=== PATIENT | male | born 1935 | race Caucasian/White ===

== ENCOUNTER 2019-11-19 14:22 | Outpatient (CLI) | payer MEDICARE ==
--- NOTE | 2019-11-19 15:09 | ULT ---
EXAM: Right lower extremity venous Doppler HISTORY: Right lower extremity edema. FINDINGS: Grayscale, color-flow, Doppler evaluation, spectral analysis of the right lower extremity venous stru ctures is performed with 2-D imaging. The right common femoral, superficial femoral, popliteal, posterior tibial, proximal greater saphenous and profunda femoral veins are imaged. There is normal luminal compressibility, flow, and augmentation in the visualized deep venous structu res of the right lower extremity. Right common femoral vein is difficult to adequately visualize on grayscale imaging due to patient positioning and current clinical condition, but there is normal flow within this vein. Nonspecific mildly prominent right inguinal lymph nodes are seen with largest lymph node measuring 9 mm in short axis dimension. Fatty jennifer are present within these lymph nodes. Mild subcutaneous edema is seen in the distal right lower extremity. There is a mildly prominent tubu lar structure with flow seen in the superficial soft tissues right lower extremity likely related to mildly prominent varicosity. IMPRESSION: 1. No evidence of a deep vein thrombosis in the visualized deep venous structures right lower extremi ty. 2. Mild subcutaneous edema distal right lower extremity.
== END 2019-11-19 14:23 | disposition home or self-care (01) ==
LOC: BICULT 14:22
PROVIDERS: ATTEND Family Medicine
DX: R60.0 Localized edema (principal); M79.89 Other specified soft tissue disorders

== ENCOUNTER 2022-02-28 23:44 | Inpatient (IN) | payer MEDICARE ==
[2022-03-01 00:40] VITALS: BMI 23.1
[2022-03-01] MEDS ORDERED: Acetaminophen 325 MG TAB PO PRN (01:37)
[2022-03-01] MEDS ORDERED: Ondansetron PF 4 MG/2 ML Vial IVP PRN (01:37)
[2022-03-01] MEDS ORDERED: Nitroglycerin 0.4 MG TAB (25 Tab Bottle) SL PRN (01:37)
[2022-03-01 02:36] LABS: Troponin I 0.062 ng/mL (< 0.028)
[2022-03-01 04:38] LABS: #Basophils 0.1 thou/uL (0.0-0.2); #Eosinphils 0.5 thou/uL (0.0-0.7); #Lymphocytes 2.9 thou/uL (1.20-3.40); %Basophils 0.7 % (0.0-1.0); %Eosinophils 5.1 % (0.0-10.0); %Lymphocytes 30.5 % (21.0-51.0); %Monocytes 10.6 % (0.0-10.0); Hemoglobin 11.6 g/dL (14.0-18.0); Mean Corpuscular HGB CONC 34.5 g/dL (32.0-36.0); Mean Corpuscular Hemoglobin 35.9 pg (27.0-31.0); Platelet Count 254 thou/uL (130-400); RBC Distribution Width 11.9 % (11.5-14.5); Red Blood Cell (RBC) Count 3.23 mill/uL (4.70-6.10); White Blood Cell (WBC) Count 9.4 thou/uL (4.8-10.8)
[2022-03-01 05:12] LABS: Anion Gap 10 mmol/L (10-20); BUN (Urea Nitrogen) 19 mg/dL (8.4-25.7); Calc. Creatinine Clearance 63 mL/min (70-130); Calcium 8.7 mg/dL (7.8-10.44); Carbon Dioxide 27 mmol/L (23-31); Cardiac Risk 2.4 (Less than 4.5); Chloride 104 mmol/L (98-107); Cholesterol 168 mg/dl (< 200 Desired); Glucose 94 mg/dL (83-110); HDL Cholesterol 69 mg/dL (>60 Neg Risk); LDL Cholesterol, Calculated 94 mg/dL; Potassium 4.5 mmol/L (3.5-5.1); Sodium 136 mmol/L (136-145); Triglycerides 27 mg/dL (Less than 150)
[2022-03-01] MEDS ORDERED: Electrolyte Replacement Protocol 1 EACH FS SCH (08:30)
[2022-03-01] MEDS ORDERED: Enoxaparin Sodium 40 MG/0.4 ML SYRINGE SC SCH (09:00)
[2022-03-01 09:40] LABS: Magnesium 2.1 mg/dL (1.6-2.6)
[2022-03-01 09:45] LABS: Troponin I 0.064 ng/mL (< 0.028)
[2022-03-01] MEDS ORDERED: Sodium Chloride 0.9% 1,000 ML IV SCH (13:30)
[2022-03-01] MEDS ORDERED: Communication Order-Pharmacy FS SCH (15:39)
[2022-03-01] MEDS: Enoxaparin Sodium 60 MG/0.6 ML SYRINGE SC SCH (21:25)
[2022-03-02 04:20] LABS: #Basophils 0.1 thou/uL (0.0-0.2); #Eosinphils 0.5 thou/uL (0.0-0.7); #Lymphocytes 2.6 thou/uL (1.20-3.40); #Monocytes 0.6 thou/uL (0.11-0.59); #Neutrophils 2.7 thou/uL (1.40-6.50); %Basophils 0.9 % (0.0-1.0); %Eosinophils 7.2 % (0.0-10.0); %Lymphocytes 40.4 % (21.0-51.0); %Monocytes 9.8 % (0.0-10.0); %Neutrophils 41.8 % (42.0-75.0); Hemoglobin 11.3 g/dL (14.0-18.0); Mean Corpuscular HGB CONC 34.1 g/dL (32.0-36.0); Mean Corpuscular Hemoglobin 35.6 pg (27.0-31.0); Mean Platelet Volume 6.9 fL (7.4-10.4); Platelet Count 237 thou/uL (130-400); Red Blood Cell (RBC) Count 3.17 mill/uL (4.70-6.10); White Blood Cell (WBC) Count 6.5 thou/uL (4.8-10.8)
[2022-03-02 04:46] LABS: Anion Gap 11 mmol/L (10-20); BUN (Urea Nitrogen) 19 mg/dL (8.4-25.7); Calc. Creatinine Clearance 58 mL/min (70-130); Calcium 8.4 mg/dL (7.8-10.44); Carbon Dioxide 25 mmol/L (23-31); Chloride 104 mmol/L (98-107); Glucose 94 mg/dL (83-110); Potassium 4.3 mmol/L (3.5-5.1); Sodium 136 mmol/L (136-145)
[2022-03-02] MEDS: Enoxaparin Sodium 60 MG/0.6 ML SYRINGE SC SCH ×2 (08:57→20:07)
[2022-03-03] MEDS: Enoxaparin Sodium 60 MG/0.6 ML SYRINGE SC SCH ×2 (09:12→20:55)
[2022-03-04 03:57] LABS: Hemoglobin 11.2 g/dL (14.0-18.0); Platelet Count 238 thou/uL (130-400)
[2022-03-04] MEDS: Enoxaparin Sodium 60 MG/0.6 ML SYRINGE SC SCH (08:46)
[2022-03-04 11:45] VITALS: BP 105/65; TEMP 98.8
== END 2022-03-04 14:02 | disposition home health service (06) | DRG 176 ==
LOC: 2NO 03-01 00:25 → OBSVTOIN 03-01 15:38
PROVIDERS: ADMIT Internal Medicine; ATTEND Internal Medicine
DX: I26.99 Other pulmonary embolism without acute cor pulmonale (principal); I82.512 Chronic embolism and thrombosis of left femoral vein; Z66 Do not resuscitate; Z20.822 Contact with and (suspected) exposure to COVID-19; G40.909 Epilepsy, unspecified, not intractable, without status epilepticus; G20 Parkinson's disease; D64.9 Anemia, unspecified; M40.209 Unspecified kyphosis, site unspecified; I25.10 Atherosclerotic heart disease of native coronary artery without angina pectoris; I45.10 Unspecified right bundle-branch block; I35.0 Nonrheumatic aortic (valve) stenosis; Z88.5 Allergy status to narcotic agent; Z86.16 Personal history of COVID-19; Z79.899 Other long term (current) drug therapy
CPT/HCPCS: 36415; 71275; 80048; 80061; 83735; 84484; 85014; 85018; 85025; 85049; 85379; 93306; 93970; 94760; J1650; J7050

== ENCOUNTER 2022-06-22 11:21 | Outpatient (CLI) | payer MEDICARE ==
[2022-06-22] MEDS ORDERED: Iopamidol 370 76% 100 ML VIAL ONE (13:39)
== END 2022-06-22 11:22 | disposition home or self-care (01) ==
LOC: BICCT 11:21
PROVIDERS: ATTEND Family Medicine
DX: I82.512 Chronic embolism and thrombosis of left femoral vein (principal); I26.99 Other pulmonary embolism without acute cor pulmonale; I77.810 Thoracic aortic ectasia; J40 Bronchitis, not specified as acute or chronic
CPT/HCPCS: 71275; 82565; 93970; Q9967

== ENCOUNTER 2022-07-27 10:15 | Outpatient (CLI) | payer MEDICARE | END 2022-07-27 10:16 | disposition home or self-care (01) | LOC: ULT 10:15 | PROVIDERS: ATTEND Family Medicine | DX: I82.512 Chronic embolism and thrombosis of left femoral vein (principal) ==

== ENCOUNTER 2023-01-05 14:34 | Inpatient (IN) | payer MEDICARE ==
[~2023-01-05 14:34] MED LIST: Iopamidol-370 76% 500 ML MDV (1 ML CHARGE) ONE
[2023-01-05] MEDS ORDERED: Cefepime 2 GM VIAL ONE (14:55)
[2023-01-05] MEDS ORDERED: Vancomycin 1.5 GRAM/300 ML BAG 1.5 GM in Premix Bag 1 BAG IVPB SCH (15:00)
[2023-01-05 15:09] LABS: #Basophils 0.1 thou/uL (0.0-0.2); #Eosinphils 0.1 thou/uL (0.0-0.7); #Lymphocytes 2.8 thou/uL (1.20-3.40); #Monocytes 1.3 thou/uL (0.11-0.59); #Neutrophils 9.2 thou/uL (1.40-6.50); %Eosinophils 1.1 % (0.0-10.0); %Lymphocytes 20.7 % (21.0-51.0); %Monocytes 9.4 % (0.0-10.0); %Neutrophils 67.8 % (42.0-75.0); Hemoglobin 10.9 g/dL (14.0-18.0); Mean Corpuscular Hemoglobin 35.3 pg (27.0-31.0); Mean Platelet Volume 7.2 fL (7.4-10.4); Platelet Count 284 10x3/uL (130-400); RBC Distribution Width 11.9 % (11.5-14.5); Red Blood Cell (RBC) Count 3.09 mill/uL (4.70-6.10); White Blood Cell (WBC) Count 13.6 10x3/uL (4.8-10.8)
[2023-01-05 15:30] LABS: ALT (SGPT) 29 U/L (8-55); AST (SGOT) 39 U/L (5-34); Albumin 3.2 g/dL (3.4-4.8); Alkaline Phosphatase 61 U/L (40-110); Anion Gap 12 mmol/L (10-20); BUN (Urea Nitrogen) 11 mg/dL (8.4-25.7); Bilirubin, Total 0.5 mg/dL (0.2-1.2); CK (CPK) 108 U/L (30-200); Calc. Creatinine Clearance 0 mL/min (70-130); Carbon Dioxide 21 mmol/L (23-31); Chloride 102 mmol/L (98-107); Estimated GFR 89; Globulin 3.3 g/dL (2.4-3.5); Glucose 104 mg/dL (83-110); Lipase 29 U/L (8-78); Potassium 3.8 mmol/L (3.5-5.1); Protein, Total 6.5 g/dL (5.8-8.1); Sodium 131 mmol/L (136-145)
[2023-01-05 15:52] LABS: CKMB 1.6 ng/mL (0-6.6)
[2023-01-05] MEDS ORDERED: Aspirin Chewable 81 MG TAB ONE (16:48)
[2023-01-05] MEDS ORDERED: Acetaminophen 325 MG TAB PO PRN (18:00)
[2023-01-05] MEDS ORDERED: Ondansetron PF 4 MG/2 ML Vial IVP PRN (18:00)
[2023-01-05] MEDS ORDERED: Ondansetron ODT 4 MG TAB SL PRN (18:00)
[2023-01-05] MEDS ORDERED: Bisacodyl 5 MG TAB PO PRN (18:12)
[2023-01-05] MEDS ORDERED: Sodium Chloride 0.9% 1,000 ML IV SCH (18:15)
[2023-01-05 19:30] VITALS: BMI 25.0
[2023-01-05] MEDS: Sodium Chloride 0.9% 1,000 ML IV SCH (19:55)
[2023-01-05 20:06] LABS: Lactic Acid 1.4 mmol/L (0.5-2.2)
[2023-01-05 20:12] LABS: Troponin I 0.073 ng/mL (< 0.028)
[2023-01-05] MEDS: Phenytoin Extended Release 100 MG CAP PO SCH (20:35)
[2023-01-06] MEDS: Sodium Chloride 0.9% 1,000 ML IV SCH ×2 (01:19→16:41)
[2023-01-06] MEDS: Cefepime 1 GM in Sodium Chloride 0.9% 100 ML IVPB SCH ×2 (02:23→16:39)
[2023-01-06] MEDS ORDERED: Cefepime 1 GM in Sodium Chloride 0.9% 100 ML IVPB SCH ×2 (03:00→17:15)
[2023-01-06 04:48] LABS: #Eosinphils 0.3 thou/uL (0.0-0.7); #Lymphocytes 1.8 thou/uL (1.20-3.40); #Monocytes 0.8 thou/uL (0.11-0.59); #Neutrophils 4.2 thou/uL (1.40-6.50); %Basophils 0.5 % (0.0-1.0); %Eosinophils 4.3 % (0.0-10.0); %Lymphocytes 25.4 % (21.0-51.0); %Neutrophils 58.8 % (42.0-75.0); Hemoglobin 10.8 g/dL (14.0-18.0); Mean Corpuscular HGB CONC 35.3 g/dL (32.0-36.0); Mean Corpuscular Hemoglobin 35.9 pg (27.0-31.0); Mean Platelet Volume 7.4 fL (7.4-10.4); Platelet Count 235 10x3/uL (130-400); White Blood Cell (WBC) Count 7.2 10x3/uL (4.8-10.8)
[2023-01-06 05:10] LABS: Anion Gap 9 mmol/L (10-20); BUN (Urea Nitrogen) 9 mg/dL (8.4-25.7); Calc. Creatinine Clearance 78 mL/min (70-130); Calcium 7.7 mg/dL (7.8-10.44); Carbon Dioxide 21 mmol/L (23-31); Chloride 105 mmol/L (98-107); Estimated GFR 92; Glucose 92 mg/dL (83-110); Sodium 131 mmol/L (136-145)
[2023-01-06] MEDS: Phenytoin Extended Release 100 MG CAP PO SCH ×2 (09:44→22:21)
[2023-01-06] MEDS ORDERED: Vancomycin 1 GM in Premix Bag 1 BAG IVPB SCH (16:00)
[2023-01-06] MEDS: Nystatin Powder 15 GM BOT TOP SCH (22:22)
[2023-01-07] MEDS: Cefepime 2 GM in Sodium Chloride 0.9% 100 ML IVPB SCH ×2 (03:58→15:56)
[2023-01-07 05:03] LABS: #Basophils 0.1 thou/uL (0.0-0.2); #Eosinphils 0.4 thou/uL (0.0-0.7); #Lymphocytes 2.3 thou/uL (1.20-3.40); #Monocytes 0.9 thou/uL (0.11-0.59); %Basophils 0.9 % (0.0-1.0); %Eosinophils 5.3 % (0.0-10.0); %Lymphocytes 30.7 % (21.0-51.0); %Monocytes 11.3 % (0.0-10.0); %Neutrophils 51.9 % (42.0-75.0); Hemoglobin 11.3 g/dL (14.0-18.0); Mean Corpuscular HGB CONC 34.5 g/dL (32.0-36.0); Mean Corpuscular Hemoglobin 35.1 pg (27.0-31.0); Platelet Count 273 10x3/uL (130-400); RBC Distribution Width 12.1 % (11.5-14.5); Red Blood Cell (RBC) Count 3.23 mill/uL (4.70-6.10); White Blood Cell (WBC) Count 7.6 10x3/uL (4.8-10.8)
[2023-01-07 05:34] LABS: Anion Gap 11 mmol/L (10-20); BUN (Urea Nitrogen) 12 mg/dL (8.4-25.7); Calc. Creatinine Clearance 78 mL/min (70-130); Calcium 8.1 mg/dL (7.8-10.44); Carbon Dioxide 21 mmol/L (23-31); Chloride 105 mmol/L (98-107); Estimated GFR 92; Glucose 89 mg/dL (83-110); Potassium 3.9 mmol/L (3.5-5.1); Sodium 133 mmol/L (136-145)
[2023-01-07] MEDS: Phenytoin Extended Release 100 MG CAP PO SCH ×2 (09:41→20:10)
[2023-01-07] MEDS: Sodium Chloride 0.9% 1,000 ML IV SCH (09:41)
[2023-01-07] MEDS: Nystatin Powder 15 GM BOT TOP SCH ×2 (09:42→20:12)
[2023-01-07 15:26] LABS: Vancomycin, Trough 9.9 ug/mL
[2023-01-07] MEDS: Vancomycin 1 GM in Premix Bag 1 BAG IVPB SCH (16:57)
[2023-01-08] MEDS: Sodium Chloride 0.9% 1,000 ML IV SCH ×2 (00:34→14:26)
[2023-01-08] MEDS: Cefepime 2 GM in Sodium Chloride 0.9% 100 ML IVPB SCH ×2 (03:44→14:57)
[2023-01-08] MEDS: Phenytoin Extended Release 100 MG CAP PO SCH ×2 (09:35→20:32)
[2023-01-08] MEDS: Nystatin Powder 15 GM BOT TOP SCH ×2 (09:36→20:36)
[2023-01-08 12:19] LABS: Dilantin 8.5 ug/mL (10.0-20.0)
[2023-01-08] MEDS: Vancomycin 1 GM in Premix Bag 1 BAG IVPB SCH (15:50)
[2023-01-09] MEDS ORDERED: Phenytoin Extended Release 100 MG CAP PO SCH (00:30)
[2023-01-09 06:18] LABS: #Basophils 0.1 thou/uL (0.0-0.2); #Eosinphils 0.7 thou/uL (0.0-0.7); #Lymphocytes 3.7 thou/uL (1.20-3.40); #Monocytes 1.1 thou/uL (0.11-0.59); #Neutrophils 4.2 thou/uL (1.40-6.50); %Basophils 0.8 % (0.0-1.0); %Eosinophils 6.7 % (0.0-10.0); %Lymphocytes 38.1 % (21.0-51.0); %Monocytes 11.1 % (0.0-10.0); %Neutrophils 43.2 % (42.0-75.0); Hemoglobin 11.2 g/dL (14.0-18.0); Mean Corpuscular HGB CONC 34.6 g/dL (32.0-36.0); Mean Corpuscular Hemoglobin 34.6 pg (27.0-31.0); Mean Platelet Volume 6.9 fL (7.4-10.4); Platelet Count 278 10x3/uL (130-400); RBC Distribution Width 12.1 % (11.5-14.5); Red Blood Cell (RBC) Count 3.24 mill/uL (4.70-6.10); White Blood Cell (WBC) Count 9.8 10x3/uL (4.8-10.8)
[2023-01-09] MEDS: Sodium Chloride 0.9% 1,000 ML IV SCH ×2 (06:25→16:07)
[2023-01-09 06:36] LABS: Anion Gap 11 mmol/L (10-20); BUN (Urea Nitrogen) 9 mg/dL (8.4-25.7); Calc. Creatinine Clearance 83 mL/min (70-130); Calcium 8.3 mg/dL (7.8-10.44); Carbon Dioxide 23 mmol/L (23-31); Chloride 105 mmol/L (98-107); Estimated GFR 94; Glucose 97 mg/dL (83-110); Potassium 4.1 mmol/L (3.5-5.1); Sodium 135 mmol/L (136-145)
[2023-01-09 08:59] LABS: Dilantin 8.6 ug/mL (10.0-20.0)
[2023-01-09] MEDS: Nystatin Powder 15 GM BOT TOP SCH ×2 (09:10→21:06)
[2023-01-09] MEDS: Phenytoin Extended Release 100 MG CAP PO SCH ×2 (09:11→21:07)
[2023-01-10 08:18] VITALS: BP 108/64; TEMP 97.5
[2023-01-10] MEDS: Nystatin Powder 15 GM BOT TOP SCH (08:43)
[2023-01-10] MEDS: Phenytoin Extended Release 100 MG CAP PO SCH (08:43)
== END 2023-01-10 10:35 | disposition home health service (06) | DRG 593 ==
LOC: ERS 14:34 → 2NO 16:29 → T4-B 01-08 13:58
PROVIDERS: ADMIT Internal Medicine; ATTEND Hospitalist
DX: L89.152 Pressure ulcer of sacral region, stage 2 (principal); I24.8 Other forms of acute ischemic heart disease; L03.317 Cellulitis of buttock; L03.818 Cellulitis of other sites; E86.0 Dehydration; G20 Parkinson's disease; G40.909 Epilepsy, unspecified, not intractable, without status epilepticus; Z98.890 Other specified postprocedural states; Z86.16 Personal history of COVID-19; Z85.828 Personal history of other malignant neoplasm of skin; Z88.8 Allergy status to other drugs, medicaments and biological substances; Z79.899 Other long term (current) drug therapy; Z74.01 Bed confinement status
CPT/HCPCS: 36415; 72193; 80048; 80053; 80185; 80202; 82550; 82553; 83605; 83690; 84484; 85025; 87040; 87077; 87149; 87631; 93005; 94760; 96374; 96375; 97139; J0692; J1650; J3370; J3370-JW; J3490; J7050; Q9967

== ENCOUNTER 2023-01-31 11:41 | Emergency (ER) | payer MEDICARE ==
[2023-01-31] MEDS ORDERED: Morphine 4 MG/ML VIAL ONE (12:09)
[2023-01-31] MEDS ORDERED: Ondansetron PF 4 MG/2 ML Vial ONE (12:09)
[2023-01-31] MEDS ORDERED: Morphine 2 MG/ML VIAL ONE (12:09)
[2023-01-31 12:15] LABS: Bacteria/HPF None Seen HPF (None Seen); Bilirubin Negative (Negative); Blood, Urine Negative (Negative); Clarity Clear (Clear); Glucose, Urine (Dipstick) Normal (Negative); Ketone, Urine Negative (Negative); Leukocyte 25 Leu/uL (Negative); Nitrite Negative (Negative); Protein, Urine (Dipstick) Negative (Neg-Trace); RBC/HPF 0-3 HPF (0-3); Squamous Epithelial 0-3 HPF (0-3); Urobilinogen Normal mg/dL (Less than 2); WBC/HPF 0-3 HPF (0-3)
[2023-01-31 12:45] LABS: #Basophils 0.1 thou/uL (0.0-0.2); #Eosinphils 0.4 thou/uL (0.0-0.7); #Lymphocytes 2.6 thou/uL (1.20-3.40); #Monocytes 1.3 thou/uL (0.11-0.59); #Neutrophils 7.6 thou/uL (1.40-6.50); %Basophils 0.5 % (0.0-1.0); %Eosinophils 3.3 % (0.0-10.0); %Lymphocytes 21.6 % (21.0-51.0); %Monocytes 10.6 % (0.0-10.0); Hemoglobin 12.1 g/dL (14.0-18.0); Mean Corpuscular Hemoglobin 33.7 pg (27.0-31.0); Mean Platelet Volume 6.9 fL (7.4-10.4); Platelet Count 329 10x3/uL (130-400); Red Blood Cell (RBC) Count 3.61 mill/uL (4.70-6.10); White Blood Cell (WBC) Count 11.9 10x3/uL (4.8-10.8)
[2023-01-31 13:03] LABS: ALT (SGPT) 29 U/L (8-55); AST (SGOT) 23 U/L (5-34); Albumin 3.7 g/dL (3.4-4.8); Alkaline Phosphatase 63 U/L (40-110); Anion Gap 14 mmol/L (10-20); BUN (Urea Nitrogen) 12 mg/dL (8.4-25.7); Bilirubin, Total 0.6 mg/dL (0.2-1.2); Calc. Creatinine Clearance 0 mL/min (70-130); Calcium 8.6 mg/dL (7.8-10.44); Carbon Dioxide 22 mmol/L (23-31); Chloride 98 mmol/L (98-107); Estimated GFR 92; Glucose 107 mg/dL (83-110); Potassium 4.6 mmol/L (3.5-5.1); Protein, Total 6.7 g/dL (5.8-8.1); Sodium 129 mmol/L (136-145)
[2023-01-31] MEDS ORDERED: cefTRIAXone (ROCEPHIN) 2 GM VIAL ONE (14:24)
[2023-01-31] MEDS ORDERED: Fluconazole 100 MG TAB PO SCH (14:30)
== END 2023-01-31 16:13 | disposition home or self-care (01) ==
LOC: ERS 11:41
DX: N47.2 Paraphimosis (principal); N48.1 Balanitis; D72.829 Elevated white blood cell count, unspecified
CPT/HCPCS: 36415; 80053; 81003; 81015; 83605; 85025; 96361; 96365; 96375; J0696; J2270; J2272; J2405